=== PATIENT | male | born 1940 | race Caucasian/White ===

== ENCOUNTER 2018-11-23 19:01 | Emergency (ER) | payer OTHER ==
[~2018-11-23] VITALS: Ht 177.8 cm; Wt 74.8 kg
[2018-11-23] MEDS ORDERED: LIDOCAINE 1% INJ 20 ML 20 ML VIAL INJ ONE (20:15)
--- NOTE | 2018-11-23 20:30 | ED Fall/Injury ---
General Chief Complaint: Trauma-Non Activation Stated Complaint: HEAD LAC, RT THUMB LAC Nursing Triage Note: fell down 2 stairs from porch. Source: patient History of Present Illness Date Seen by Provider: Nov 23, 2018 Time Seen by Provider: 19:47 Initial Comments 78-year-old male presenting with complaints of falling down 2 stairs. This happened just prior to arriving in the emergency department so at approximately 1815. He denies losing consciousness. He has abrasions and a laceration to the left forehead by his eyebrow. He has laceration and injury to the right thumb. He denies having any change in his vision. He's had no nausea or vomiting. He has been able to walk since this happened. He has been having difficulty with walking and dissection coming to physical therapy 3 times a week due to difficulty raising his right leg. He is using a walker and feels that the walker and stairs tripped him up when he was trying to go up stairs. He denies having any fever or chills. He has not had any cough or congestion. He denies any other symptoms currently. Location Injury Occurred: Home Allergies and Home Medications Allergies Coded Allergies: No Known Drug Allergies (Unverified , 11/23/18) Home Medications No Active Prescriptions or Reported Meds Patient Home Medication List Home Medication List Reviewed: Yes Review of Systems Review of Systems Constitutional: see HPI; No chills, No diaphoresis, No dizziness, No fever Eyes: Denies Blurred Vision, Denies Drainage, Denies Photophobia Ears, Nose, Mouth, Throat: denies ear pain, denies ear discharge, denies nose discharge, denies epistaxis Respiratory: No cough, No dyspnea on exertion Cardiovascular: No chest pain Gastrointestinal: No abdominal pain, No nausea, No vomiting Genitourinary: No dysuria, No hematuria Musculoskeletal: back pain (chronic low back pain) Skin: see HPI Past Vwrjufo-Livdvz-Uxcqrr Hx Past Med/Social Hx: Reviewed Nursing Past Med/Soc Hx Patient Social History Alcohol Use: Denies Use Recreational Drug Use: No Smoking Status: Never a Smoker 2nd Hand Smoke Exposure: No Recent Foreign Travel: No Contact w/Someone Who Travel: No Recent Infectious Disease Expo: No Recent Hopitalizations: No Physical Abuse: No Sexual Abuse: No Mistreated: No Fear: No Seasonal Allergies Seasonal Allergies: No Past Medical History Respiratory: No Cardiac: No Neurological: No Genitourinary: No Gastrointestinal: No Musculoskeletal: No Endocrine: No HEENT: No Loss of Vision: Denies Hearing Impairment: Denies Cancer: No Psychosocial: No Integumentary: No Blood Disorders: No Physical Exam Vital Signs Vital Signs - First Documented Capillary Refill : Less Than 3 Seconds Height, Weight, BMI Height: 5'10.00" Weight: 165lbs. oz. 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 Also has superficial abrasions on the left forehead. 3 cm flap laceration to the lateral right thumb by the thumbnail) [place] Coma Score Best Eye Response: (4) Open Spontaneously Best Verbal Response: (5) Oriented Best Motor Response: (6) Obeys Commands [place] Total: 15 Procedures/Interventions Wound Location: Upper Extremities (right thumb on the lateral side by the thumbnail) Wound Length (cm): 3 Wound's Depth, Shape: flap, sub Q Wound Explored: clean Anesthesia: 1% Lidocaine Volume Anesthetic (ccs): 5 Suture: Ethlion Suture Size: 5-0 Number of Sutures: 4 Layer Closure?: 1 Sterile Dressing Applied?: Yes Progress After obtaining verbal consent, the wound was anesthetized with a digital block using 1% plain lidocaine. Then the wound was cleaned with chlorhexidine and sterile saline. The flap was approximated using 5-0 Ethilon with loose stitches. Using simple interrupted stitches a total of 4 stitches were placed to approximate the edges and loosely applying the flap. The patient was warned that with the flap being so thin that the skin may just slough off with a scab rather than reattach. He was counseled on follow-up and return precautions. Advised that he may need to see wound care for this as it may not heal very well. Wound Location: Face (lateral to left eyebrow) Wound Length (cm): 1.5 Wound's Depth, Shape: sub Q Wound Explored: clean Anesthesia: 1% Lidocaine Volume Anesthetic (ccs): 5 Suture: Ethlion Suture Size: 5-0 Number of Sutures: 4 Layer Closure?: 1 Sterile Dressing Applied?: Yes Progress After obtaining verbal consent, the wound was anesthetized with plain 1% lidocaine. The wound was then cleaned with chlorhexidine and sterile saline. The wound edges were approximated with simple or updated stitches using 5-0 Ethilon. He tolerated the procedure well without immediate complications. He was counseled on follow-up. Return precautions and advised to have the stitches removed in 7-10 days or sooner if more concerns Progress/Results/Core Measures Results/Orders My Orders Orders - JOSEPH CHANG MD Ct Head Wo (11/23/18 20:08) Finger(S) (11/23/18 20:08) Lidocaine 1% Inj 20 Ml (Xylocaine 1% Inj (11/23/18 20:15) Suture Set At Bedside (11/23/18 20:08) Juan/Poly/Maureen Topical Ointment (Neosporin (11/23/18 22:15) Wound Dressing-Ed (11/23/18 22:09) Medications Given in ED Current Medications Medications Dose Ordered Sig/Ashley Route Start Time Stop Time Status Last Admin Dose Admin Lidocaine HCl 20 ml ONCE ONCE INJ 11/23/18 20:15 11/23/18 20:16 DC 11/23/18 21:30 20 ML Neomycin/ Polymyxin/ Bacitracin 1 gm ONCE ONCE TOP 11/23/18 22:15 11/23/18 22:16 DC 11/23/18 22:00 1 GM Vital Signs/I&O 11/23/18 11/23/18 11/23/18 11/23/18 19:09 19:09 21:00 22:29 Temp 98.2 98.2 99.0 Pulse 72 72 66 62 Resp 16 16 16 B/P (MAP) 155/84 (107) 155/84 (107) 130/66 (87) 121/67 (85) Pulse Ox 97 95 97 O2 Delivery Room Air Room Air Room Air Blood Pressure Mean: 107 Progress Progress Note #1: Progress Note Obtain a CT of the head to evaluate for bleeding due to his injury and age with concern for possible intracranial hemorrhage or skull fracture. We'll also obtain x-rays of the right thumb to look for foreign body or bony injury. Provided these are okay will plan on suturing the wounds and having him follow up for suture removal that he may also need wound care for the thumb injury due to in a flap laceration. Progress Note #2: Progress Note His imaging did not show any definite intracranial hemorrhage or fractures and he has no fractures or foreign bodies on his thumb. The wounds were approximated with good effect in the emergency department. He tolerated procedures well. Counseled on follow-up and return precautions. Diagnostic Imaging Diagonstic Imaging: Xray Plain Films/CT/US/NM/MRI: other (right thumb) Comments NAME: TORO HOPKINS [facility] REC#: [id number] PT STATUS: REG ER : 1940 PHYSICIAN: JOSEPH CHANG MD ADMIT DATE: 11/23/18/ER FS Draft Date of Exam:11/23/18 FINGER(S) INDICATION: Right thumb pain. COMPARISON: None available. TECHNIQUE: 3 views of the right thumb. FINDINGS: Moderate degenerative changes are present at the thumb MCP and IP joints. No acute fracture is present. No traumatic malalignment. Visualized aspects of the hand also show multifocal degenerative changes. 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 IMPRESSION: 1. No acute fracture or traumatic malalignment in the right thumb. 2. 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 Dictated on workstation # [id number] Dict: 11/23/182038 Trans: 11/23/182042 [facility] [id number] Interpreted by: CHLOÉ POWELL MD Electronically signed by: Reviewed: Reviewed by Me Diagonstic Imaging: CT Plain Films/CT/US/NM/MRI: head Comments NAME: [facility]KINSTORO [facility] REC#: [id number] PT STATUS: REG ER : 1940 PHYSICIAN: JOSEPH CHANG MD ADMIT DATE: 11/23/18/ER FS Draft Date of Exam:11/23/18 CT HEAD WO PROCEDURE: CT head without contrast. TECHNIQUE: Multiple contiguous axial images were obtained through the brain without the use of intravenous contrast. INDICATION: Head pain after fall. COMPARISON: None available. FINDINGS: No acute intracranial hemorrhage or hydrocephalus. No space-occupying mass or midline shift. No acute skull fracture. Left supraorbital scalp swelling. 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 Paranasal sinuses and mastoid air cells are clear. IMPRESSION: 1. No acute intracranial hemorrhage or skull fracture. 2. 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 Dictated on workstation # [id number] Dict: 11/23/182039 Trans: 11/23/182043 [id number] Interpreted by: CHLOÉ POWELL MD Electronically signed by: Reviewed: Reviewed by Me Departure Impression Primary Impression: Laceration of face without complication Qualified Codes: S01.81XA - Laceration without foreign body of other part of head, initial encounter Additional Impressions: Laceration of right thumb without foreign body without damage to nail Qualified Codes: S61.011A - Laceration without foreign body of right thumb without damage to nail, initial encounter Fall on stairs Qualified Codes: W10.9XXA - Fall (on) (from) unspecified stairs and steps, initial encounter Disposition: 01 HOME, SELF-CARE Condition: Stable Departure-Patient Inst. Decision time for Depature: 22:15 Referrals: GARY KNOX MD (PCP) Primary Care Physician Patient Instructions: Laceration Repair With Stitches (DC), Preventing Falls in the Older Adult Add. Discharge Instructions: Keep wounds clean and dry. Leave the dressing on the thumb until you can have Dr. Knox in the clinic check the wound. Have him do this on or Thursday. If he is not able to do that then you will need to return to the ER or have one of his partners do the wound check and change the dressing. The stitches can be removed in 7 to 10 days but you may also need to see wound clinic for your thumb or be seen sooner if concerns for infection such as redness, pus draining from the wounds or fever over 101 F. You may take acetaminophen for pain if needed. Try to elevate your head and thumb to help with swelling and pain, especially when you are sleeping. All discharge instructions reviewed with patient and/or family. Voiced understanding. Scripts No Active Prescriptions or Reported Meds JOSEPH CHANG MD Nov 23, 2018 20:30
--- NOTE | 2018-11-23 20:43 | Diagnostic Imaging Report ---
INDICATION: Right thumb pain. COMPARISON: None available. TECHNIQUE: 3 views of the right thumb. FINDINGS: Moderate degenerative changes are present at the thumb MCP and IP joints. No acute fracture is present. No traumatic malalignment. Visualized aspects of the hand also show multifocal degenerative changes. 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 IMPRESSION: 1. No acute fracture or traumatic malalignment in the right thumb. 2. 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 Dictated by: Dictated on workstation # [id number]
--- NOTE | 2018-11-23 20:45 | Diagnostic Imaging Report ---
PROCEDURE: CT head without contrast. TECHNIQUE: Multiple contiguous axial images were obtained through the brain without the use of intravenous contrast. INDICATION: Head pain after fall. COMPARISON: None available. FINDINGS: No acute intracranial hemorrhage or hydrocephalus. No space-occupying mass or midline shift. No acute skull fracture. Left supraorbital scalp swelling. 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 Paranasal sinuses and mastoid air cells are clear. IMPRESSION: 1. No acute intracranial hemorrhage or skull fracture. 2. 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 Dictated by: Dictated on workstation # [id number]
[2018-11-23 21:00] VITALS: BP 130/66
[2018-11-23] MEDS ORDERED: NEO/POLY/BAC (NEOSPORIN) OINT 15 GM TUBE TOP ONE (22:15)
[2018-11-23 22:29] VITALS: BP 121/67
== END 2018-11-23 22:29 | disposition home or self-care (01) ==
LOC: ER FS 19:04
DX: S01.81XA Laceration without foreign body of other part of head, initial encounter (principal); S61.011A Laceration without foreign body of right thumb without damage to nail, initial encounter; R40.2142 Coma scale, eyes open, spontaneous, at arrival to emergency department; R40.2252 Coma scale, best verbal response, oriented, at arrival to emergency department; R40.2362 Coma scale, best motor response, obeys commands, at arrival to emergency department; W10.8XXA Fall (on) (from) other stairs and steps, initial encounter
CPT/HCPCS: 70450; 73140

== ENCOUNTER 2019-04-11 09:06 | Inpatient (IN) | payer MEDICARE, OTHER | END 2019-04-29 14:28 | disposition EMF | LOC: ICU 04-18 16:23 → 4TH 04-23 13:50 → ICU 04-25 01:17 → 4TH 04-26 13:32 → ER FS 09:06 → ICU 13:21 | DX: I63.81 Other cerebral infarction due to occlusion or stenosis of small artery (principal); G81.91 Hemiplegia, unspecified affecting right dominant side; J69.0 Pneumonitis due to inhalation of food and vomit; I26.99 Other pulmonary embolism without acute cor pulmonale; K92.0 Hematemesis; M35.3 Polymyalgia rheumatica; I77.6 Arteritis, unspecified; R47.01 Aphasia; R47.1 Dysarthria and anarthria; R29.710 NIHSS score 10; N28.9 Disorder of kidney and ureter, unspecified; R19.7 Diarrhea, unspecified; N39.41 Urge incontinence; E83.42 Hypomagnesemia; E87.6 Hypokalemia; W19.XXXA Unspecified fall, initial encounter; Y92.009 Unspecified place in unspecified non-institutional (private) residence as the place of occurrence of the external cause; Z86.73 Personal history of transient ischemic attack (TIA), and cerebral infarction without residual deficits ==